=== PATIENT | male | born 2005 | race Caucasian/White ===

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

== ENCOUNTER 2025-08-24 19:08 | Emergency (ER) | payer OTHER, SELFPAY ==
--- OUTSIDE RECORDS SUMMARY | 2024-08-03 10:00 | XMS_ITS ---
Author Organization [facility] Address [address] [facility] [place] [address] Care Team Providers Care Network Services Project Manager Name Role Phone Antoinette Aceves Unavailable [phone] REASON FOR VISIT 3 month f/u Encounters Encounter Location Date Provider Diagnosis [facility] [address] [place] [address] 08/03/2024 Antoinette Aceves Plan Of Treatment No Information Progress Notes * CARLY SUEDOB:[birth year] (20 yo M)Acc No.[id number]:08/03/2024 Behavioral [facility] Patient: CARLY BENITEZ :?Antoinette AcevesDOB:2005???Age:19 Y???Sex:Male Date:08/03/2024hone:[phone]:[address] [place] [address], [address], [place], [id number] Subjective: * Chief Complaints: * 3 month f/u * Electronic signature of MARGIE Santoro on 08/24/2025 at 08:09 PM ESTSign off status: Pending * Provider: Nolan Aceves Date: 10/03/2023 Generated for Printing/Faxing/eTransmitting on:?08/24/2025 08:09 PM EST
--- OUTSIDE RECORDS SUMMARY | 2025-08-15 21:16 | XMS_ITS | Continuity of Care Document ---
Author Organization [facility] Address Unknown Care Team Providers Care Flour Mixer Helper Name Role Phone Priyanka Pam Garcia Primary Care Physician Encounter [facility] [id number] Date(s): 08/15/25 - 08/15/25 [facility] [address] [place], [place] [address] Encounter Diagnosis Back pain(Discharge Diagnosis) - 08/15/25 Contact dermatitis(Discharge Diagnosis) - 08/15/25 Discharge Disposition: Home (Routine DC) Attending Physician: Zenia Patterson D.O. Encounter Type: Emergency Allergies, Adverse Reactions, Alerts No Known Medication Allergies Treatment Plan Extracted from:Title:ED NoteAuthor:Zenia Patterson D.O. MDate:08/15/25 1. Contact dermatitis (L25.9: Unspecified contact dermatitis, unspecified cause) Ordered: cyclobenzaprine, 5 mg = 1 tab(s), Oral, TID, X 7 day(s), # 21 tab(s), Refills(s) 0, Pharmacy: [facility], 185, cm, 08/15/25 20:44:00 EST, Height/Length Dosing, 99.3, kg, 08/15/25 20:44:00 EST, Weight Dosing predniSONE, 0 = 1 -, Oral, As Directed, Take 4 tabs by mouth daily x3 days, 3 tabs daily x3 days, 2tabs daily x3 days, then 1 tab daily x3 days., # 30 tab(s), Refills(s) 0, Pharmacy: [facility] 1985, 185, cm, 08/15/25 20:44:00 EST, Height/Length Dosing, 99... ?? 2.??Back pain??(M54.9: Dorsalgia, unspecified) Ordered: cyclobenzaprine, 5 mg = 1 tab(s), Oral, TID, X 7 day(s), # 21 tab(s), Refills(s) 0, Pharmacy: [facility], 185, cm, 08/15/25 20:44:00 EST, Height/Length Dosing, 99.3, kg, 08/15/25 20:44:00 EST, Weight Dosing predniSONE, 0 = 1 -, Oral, As Directed, Take 4 tabs by mouth daily x3 days, 3 tabs daily x3 days, 2tabs daily x3 days, then 1 tab daily x3 days., # 30 tab(s), Refills(s) 0, Pharmacy: [facility], 185, cm, 08/15/25 20:44:00 EST, Height/Length Dosing, 99... ?? Orders: diphenhydrAMINE, 25 mg = 1 cap(s), Cap, Oral, Once, Stop date 08/15/25 20:59:00 EST, STAT, Start date 08/15/25 20:59:00 EST, 08/15/25 20:59:00 EST predniSONE, 40 mg = 2 tab(s), Tab, Oral, Once, Stop date 08/15/25 20:57:00 EST, STAT, Start date 08/15/25 20:57:00 EST, 08/15/25 20:57:00 EST Immunizations Given and Recorded VaccineDateStatusRefusal Reasondiphtheria/pertussis, acel/tetanus adult09/03/23 Givendiphtheria/pertussis, acel/tetanus adult01/11/18Recordedmeningococcal conjugate vaccine03/31/22Recordedmeningococcal conjugate vaccine01/11/18Recorded measles/mumps/rubella/varicella vaccine06/19/10Recordedhepatitis A pediatric vaccine06/19/10Recordedhepatitis A pediatric vaccine3/4/10Recordedvaricella virus vaccine11/28/09Recordedmeasles/mumps/rubella virus vaccine11/28/09RecordedDTaP, unspecified formulation11/28/09RecordedDTaP, unspecified formulation05/13/05 RecordedDTaP, unspecified formulation03/09/05RecordedDTaP, unspecified formulation04Recordedpoliovirus vaccine, inactivated05/13/05Recorded poliovirus vaccine, inactivated03/09/05Recordedhepatitis B pediatric vaccine 04RecordedHib, unspecified formulation04Recorded Medications Albuterol (Eqv-ProAir HFA) 90 mcg/inh inhalation aerosol 2 puff(s), Inhalation, q6hr Wheezing, 8.5 gm, Refill(s) 0, [facility], 185, cm, 12/01/2514:49:00 EST, Height/Length Dosing, 105, kg, 12/01/24 15:49:00 EST, Weight Dosing Start Date: 12/01/24 Status: Ordered Medication Dispense Status: Completed Quantity: 8.5 Unit: g Total Allowed Fills: 1 Fills Dispensed: 0 cyclobenzaprine 5 mg Tab 5 mg = 1 tab(s), Oral, TID, X 7 day(s), # 21 tab(s), Refills(s) 0, Pharmacy: [facility] 1985,185, cm, 08/15/25 20:44:00 EST, Height/Length Dosing, 99.3, kg, 08/15/25 20:44:00 EST, Weight Dosing Start Date: 08/15/25 Stop Date: 08/22/25 Status: Ordered Medication Dispense Status: Completed Quantity: 21.0 Unit: tab(s) Total Allowed Fills: 1 Fills Dispensed: 0 Indications: Unspecified contact dermatitis, unspecified cause; Dorsalgia, unspecified; predniSONE 10 mg Tab 0 = 1 -, Oral, As Directed, Take 4 tabs by mouth daily x3 days, 3 tabs daily x3 days, 2 tabs daily x3 days, then 1 tab daily x3 days., # 30 tab(s), Refills(s) 0, Pharmacy: [facility], 185,cm, 08/15/25 20:44:00 EST, Height/Length Dosing, 99.3, kg, 08/15/25 20:44:00 EST, Weight Dosing Start Date: 08/15/25 Status: Ordered Medication Dispense Status: Completed Quantity: 30.0 Unit: tab(s) Total Allowed Fills: 1 Fills Dispensed: 0 Indications: Unspecified contact dermatitis, unspecified cause; Dorsalgia, unspecified; Ventolin HFA 90 mcg/inh Aerosol-Adpt 1 puff(s), Inhalation, q6hr for wheezing, 18 gram, Refill(s) 0, [facility], 185, cm, 02/20/24 20:53:00 EDT, Height/Length Dosing, 102.1, kg, 02/20/24 20:53:00 EDT, Weight Dosing Start Date: 02/20/24 Status: Ordered Medication Dispense Status: Completed Quantity: 18.0 Unit: g Total Allowed Fills: 1 Fills Dispensed: 0 Problem List ConditionConfirmationCourseEffective DatesStatusHealth StatusInformantAnxiety ConfirmedActiveAsthmaConfirmedActiveExcessive thirstConfirmedResolvedFatigue ConfirmedResolvedTourette disorderConfirmedResolvedH/O retinal detachment ConfirmedActiveFrequent urinationConfirmedResolvedInjury of right handConfirmed ActiveBipolar I disorder with anxious distressConfirmedResolvedBMI 28.0-28.9,adultConfirmedActiveBMI 27.0-27.9,jneimJijuomohwVycqzjRomael8Qbhbbhwcl ActiveLeft wrist sprainConfirmedActive 1Added secondary to documentation in Social History. Procedures ProcedureDateRelated DiagnosisBody SiteStatusdetatched [id number] 1Surgical repair Social History Social History TypeResponseSmoking StatusNever (less than 100 in lifetime)1 entered on: 12/04/24Birth SexMaleSex RepresentationMale (finding) 1denies 2When he visits his mother, or his grandmother in [place] they both smoke Hospital Discharge Instructions Patient Education 08/15/2025 21:00:51 Contact Dermatitis Contact Dermatitis Dermatitis is redness, soreness, and swelling (inflammation) of the skin. Contact dermatitis is a reaction to certain substances that touch the skin. There are two types of this condition: ??? Irritant contact dermatitis. This is the most common type. It happens when something irritates your skin, such as when your hands get dry from washing them too often with soap. You can get this type of reaction even if you have not been exposed to the irritant before. ??? Allergic contact dermatitis. This type is caused by a substance that you are allergic to, such as poison jeniffer. It occurs when you have been exposed to the substance (allergen) and form a sensitivity to it. In some cases, the reaction may start soon after your first exposure to the allergen. In other cases, it may not start until you are exposed to the allergen again. It may then occur every time you are exposed to the allergen in the future. What are the causes? Irritant contact dermatitis is often caused by exposure to: ??? Makeup. ??? Soaps, detergents, and bleaches. ??? Acids. ??? Metal salts, such as nickel. Allergic contact dermatitis is often caused by exposure to: ??? Poisonous plants. ??? Chemicals. ??? Jewelry. ??? Latex. ??? Medicines. ??? Preservatives in products, such as clothes. What increases the risk? You are more likely to get this condition if you have: ??? A job that exposes you to irritants or allergens. ??? Certain medical conditions. These include asthma and eczema. What are the signs or symptoms? Symptoms of this condition may occur in any place on your body that has been touched by the irritant. ??? Symptoms include: ??? Dryness, flaking, or cracking. ??? Redness. ??? Itching. ??? Pain or a burning feeling. ??? Blisters. ??? Drainage of small amounts of blood or clear fluid from skin cracks. With allergic contact dermatitis, there may also be swelling in areas such as the eyelids, mouth, or genitals. How is this diagnosed? This condition is diagnosed with a medical history and physical exam. ??? A patch skin test may be done to help figure out the cause. ??? If the condition is related to your job, you may need to see an expert in health problems in the workplace (specialist physician). How is this treated? This condition is treated by staying away from the cause of the reaction and protecting your skin from further contact. Treatment may also include: ??? Steroid creams or ointments. Steroid medicines may need be taken by mouth (orally) in more severe cases. ??? Antibiotics or medicines applied to the skin to kill bacteria (antibacterial ointments). These may be needed if a skin infection is present. ??? Antihistamines. These may be taken orally or put on as a lotion to ease itching. ??? A bandage (dressing). Follow these instructions at home: Skin care ??? Moisturize your skin as needed. ??? Put cool, wet cloths (cool compresses) on the affected areas. ??? Try applying baking soda paste to your skin. Stir water into baking soda until it has the consistency of a paste. ??? Do not scratch your skin. Avoid friction to the affected area. ??? Avoid the use of soaps, perfumes, and dyes. ??? Check the affected areas every day for signs of infection. Check for: ??? More redness, swelling, or pain. ??? More fluid or blood. ??? Warmth. ??? Pus or a bad smell. Medicines ??? Take or apply ttpr-lsv-ocvwbuy and prescription medicines only as told by your health care provider. ??? If you were prescribed antibiotics, take or apply them as told by your health care provider. Donot stop using the antibiotic even if you start to feel better. Bathing ??? Try taking a bath with: ??? Epsom salts. Follow the instructions on the packaging. You can get these at your local pharmacyor grocery store. ??? Baking soda. Pour a small amount into the bath as told by your health care provider. ??? Colloidal oatmeal. Follow the instructions on the packaging. You can get this at your local pharmacy or grocery store. ??? Bathe less often. This may mean bathing every other day. ??? Bathe in lukewarm water. Avoid using hot water. Bandage care ??? If you were given a dressing, change it as told by your health care provider. ??? Wash your hands with soap and water for at least 20 seconds before and after you change your dressing. If soap and water are not available, use hand construction technology instructor. General instructions ??? Avoid the substance that caused your reaction. If you do not know what caused it, keep a journal to try to track what caused it. Write down: ??? What you eat and drink. ??? What cosmetics you use. ??? What you wear in the affected area. This includes jewelry. Contact a health care provider if: ??? Your condition does not get better with treatment. ??? Your condition gets worse. ??? You have any signs of infection. ??? You have a fever. ??? You have new symptoms. ??? Your bone or joint under the affected area becomes painful after the skin has healed. Get help right away if: ??? You notice red streaks coming from the affected area. ??? The affected area turns darker. ??? You have trouble breathing. This information is not intended to replace advice given to you by your health care provider. Make sure you discuss any questions you have with your health care provider. Document Revised: 03/19/2023 Document Reviewed: 03/19/2023 [employer] Patient Education ?? 2023 [employer]. 08/15/2025 21:00:51 Acute Back Pain, Adult Acute Back Pain, Adult Acute back pain is sudden and usually short-lived. It is often caused by an injury to the muscles and tissues in the back. The injury may result from: ??? A muscle, tendon, or ligament getting overstretched or torn. Ligaments are tissues that connectbones to each other. Lifting something improperly can cause a back strain. ??? Wear and tear (degeneration) of the spinal disks. Spinal disks are circular tissue that providecushioning between the bones of the spine (vertebrae). ??? Twisting motions, such as while playing sports or doing yard work. ??? A hit to the back. ??? Arthritis. You may have a physical exam, lab tests, and imaging tests to find the cause of your pain. Acute back pain usually goes away with rest and home care. Follow these instructions at home: Managing pain, stiffness, and swelling ??? Take sahz-fdp-jkfmppb and prescription medicines only as told by your health care provider. Treatment may include medicines for pain and inflammation that are taken by mouth or applied to the skin, or muscle relaxants. ??? Your health care provider may recommend applying ice during the first 24???48 hours after your pain starts. To do this: ??? Put ice in a plastic bag. ??? Place a towel between your skin and the bag. ??? Leave the ice on for 20 minutes, 2???3 times a day. ??? Remove the ice if your skin turns bright red. This is very important. If you cannot feel pain, heat, or cold, you have a greater risk of damage to the area. ??? If directed, apply heat to the affected area as often as told by your health care provider. Usethe heat source that your health care provider recommends, such as a moist heat pack or a heating pad. ??? Place a towel between your skin and the heat source. ??? Leave the heat on for 20???30 minutes. ??? Remove the heat if your skin turns bright red. This is especially important if you are unable to feel pain, heat, or cold. You have a greater risk of getting burned. Activity ??? Do not stay in bed. Staying in bed for more than 1???2 days can delay your recovery. ??? Sit up and stand up straight. Avoid leaning forward when you sit or hunching over when you stand. ??? If you work at a desk, sit close to it so you do not need to lean over. Keep your chin tucked in. Keep your neck drawn back, and keep your elbows bent at a 90-degree angle (right angle). ??? Sit high and close to the steering wheel when you drive. Add lower back (lumbar) support to your car seat, if needed. ??? Take short walks on even surfaces as soon as you are able. Try to increase the length of time you walk each day. ??? Do not sit, drive, or health information clerk one place for more than 30 minutes at a time. Sitting or standing for long periods of time can put stress on your back. ??? Do not drive or use heavy machinery while taking prescription pain medicine. ??? Use proper lifting techniques. When you bend and lift, use positions that put less stress on your back: ??? Bend your knees. ??? Keep the load close to your body. ??? Avoid twisting. ??? Exercise regularly as told by your health care provider. Exercising helps your back heal fasterand helps prevent back injuries by keeping muscles strong and flexible. ??? Work with a physical therapist to make a safe exercise program, as recommended by your health care provider. Do any exercises as told by your physical therapist. Lifestyle ??? Maintain a healthy weight. Extra weight puts stress on your back and makes it difficult to havegood posture. ??? Avoid activities or situations that make you feel anxious or stressed. Stress and anxiety increase muscle tension and can make back pain worse. Learn ways to manage anxiety and stress, such as through exercise. General instructions ??? Sleep on a firm mattress in a comfortable position. Try lying on your side with your knees slightly bent. If you lie on your back, put a pillow under your knees. ??? Keep your head and neck in a straight line with your spine (neutral position) when using electronic equipment like smartphones or pads. To do this: ??? Raise your smartphone or pad to look at it instead of bending your head or neck to look down. ??? Put the smartphone or pad at the level of your face while looking at the screen. ??? Follow your treatment plan as told by your health care provider. This may include: ??? Cognitive or behavioral therapy. ??? Acupuncture or massage therapy. ??? Meditation or yoga. Contact a health care provider if: ??? You have pain that is not relieved with rest or medicine. ??? You have increasing pain going down into your legs or buttocks. ??? Your pain does not improve after 2 weeks. ??? You have pain at night. ??? You lose weight without trying. ??? You have a fever or chills. ??? You develop nausea or vomiting. ??? You develop abdominal pain. Get help right away if: ??? You develop new bowel or bladder control problems. ??? You have unusual weakness or numbness in your arms or legs. ??? You feel faint. These symptoms may represent a serious problem that is an emergency. Do not wait to see if the symptoms will go away. Get medical help right away. Call your local emergency services (911 in the [place] Do not drive yourself to the hospital. Summary ??? Acute back pain is sudden and usually short-lived. ??? Use proper lifting techniques. When you bend and lift, use positions that put less stress on your back. ??? Take agxi-phn-qnkthjb and prescription medicines only as told by your health care provider, andapply heat or ice as told. This information is not intended to replace advice given to you by your health care provider. Make sure you discuss any questions you have with your health care provider. Document Revised: 12/05/2021 Document Reviewed: 12/05/2021 [employer] Patient Education ?? 2023 [employer]. Follow Up Care 08/15/2025 20:38:20 With:Priyanka ROA, Pam Garcia, DARIUSZ, MED Address: [address] [place], [place] [id number]- When:08/18/2025 Physician Emergency department Note * Zenia Patterson D.O.: PERFORM Event Display: ED Note-Physician Authored Date: Basic Information Time Seen: Shabbir Mabry D.O., Zenia Bonds ??08/15/2025 20:46 Chief Complaint pt arrives for c/o rash on his back after having biofreeze put on it. History of Present Illness The patient is a 20-year-old healthy male who presents to the emergency department??for an allergicreaction to Biofreeze. ??He has been having back pain for about a month in the lumbar??region. ??This evening he had his girlfriend rub Biofreeze on it. ??He states he is used in the past. ??But thistime he has never had this type of reaction. ??He states that he put the Biofreeze on and??it was very cold and then it got hot. ??It got very hot. ??He tried to rinse it off and he stated that it was ineffective.?? Therefore he is coming to the emergency department for evaluation after his back was red. ?? In reference to the back pain, he denies any IV drug use. ??No trauma to the back. ??No active infections anywhere.?? He does not have diabetes. ??No immunocompromising states.?? Patient??denies any loss of bowel or bladder. ??No urinary retention.?? No numbness or weakness in the lower extremities.?? The pain has been present for about 1 month.?? In the upper lumbar area. ??Moving makes it worse. ??Nothing makes it better. ??No radiation of the pain. Review of Systems 10 systems were reviewed. ??Unless indicated in a detailed history of present illness, all other systems reviewed, unremarkable, or noncontributory. Physical Exam Vitals & Measurements T:??36.8?C(Oral)?? HR:??75(Peripheral)?? RR:??16?? BP:??135/71?? SpO2:??98%?? HT:??185??cm?? WT:??99.3??kg?? BMI:??29.01?? Introduced myself to the patient. ??My hands were washed with??hospital supplied??hand construction technology instructor and then??nonlatex gloves were applied. ??I??obtained??permission from the patient to??examine them. ?? General:??Patient is alert and oriented??to person place and time.?? They are able to provide theirown??history.?? Patient appears??to be nontoxic although in mild distress. Skin:??Skin is pink warm and dry without any evidence of rashes or lesions. Head:??Normocephalic atraumatic. ?? Eye:??Pupils are equal round and reactive. ??Extraocular muscles are intact. ??No evidence of vertical or horizontal nystagmus.?? Conjunctiva??is normal. ??No evidence of scleral icterus ENMT: Dentition is intact, mucous membranes are moist.?? No evidence of nasal discharge. ?? Back:??No midline point tenderness.?? No paraspinal musculature tenderness.?Diffusely tender in the??upper lumbar segments of the back. ??More centrally located. Extremities:??Patient moves all 4 extremities symmetrically.?? No evidence of gross deformity, swelling, or tenderness. Neurological: oriented x 4, LOC appropriate for age, CN II-XII intact, motor strength equal & normal bilaterally, sensation equal & normal bilaterally, speech normal 2 out of 4 patellar reflexes bilaterally, 5 out of 5??symmetrical muscle strength in dorsiflexion, plantarflexion, extensor hallucis longus, hip flexors, quadriceps, hamstrings.?? No??change in sensation to light touch or pressure. Psychiatric:??cooperative, affect??appropriate for age,??normal??judgement,??normal??psychiatric thoughts. ?? After the patient was examined by close removed and my hands were re- sanitized.?? The patient was informed of all abnormal physical exam findings. Medical Decision Making Medical Decision Making and Clinical Course Summary:?The patient is a 20-year-old healthy male who presents to the emergency department??kendall allergic reaction to Biofreeze. ??He has been having back pain for about a month in the lumbar??region. ??This evening he had his girlfriend rub Biofreeze on it. ??He states he is used in the past. ??But this time he has never had this type of reaction. ??He states that he put the Biofreeze on and??it was very cold and then it got hot. ??It got very hot. ??He tried to rinse it off and he stated that it was ineffective.?? Therefore he is coming to the emergency department for evaluation afterhis back was red. ?? In reference to the back pain, he denies any IV drug use. ??No trauma to the back. ??No active infections anywhere.?? He does not have diabetes. ??No immunocompromising states.?? Patient??denies any loss of bowel or bladder. ??No urinary retention.?? No numbness or weakness in the lower extremities.?? The pain has been present for about 1 month.?? In the upper lumbar area. ??Moving makes it worse. ??Nothing makes it better. ??No radiation of the pain. ?? Additional Historian:?? none ?? Medical Records Reviewed:?? none ?? Labs ordered:?? none ?? Imaging Ordered:?? none ?? Interpretation of Labs/Imaging:?? NA ?? Medications administered: Prednisone 40 mg PO Benadryl 25 mg PO ?? Reassessment:?? none ?? Disposition:?? discharge ?? Plan: Monitor allergy symptoms. ??No longer use the Biofreeze. Prednisone taper. ??The prednisone will help both with the allergic reaction as well as the back pain. Benadryl every 6 hours as needed itching Cyclobenzaprine for the back pain. Patient needs to follow-up with his primary medical physician for further evaluation and treatment.?? Return if any deficits??appear. ?? Prior to the patient being discharged, all??aspects of the visit were revisited.?? I am made certain that the patient's??complaint was understood.?? I went over all of the laboratories and images??that were performed and I even went through??why we did not do testing that the patient would have otherwise had an expected.?? Questions were answered to the patient??and/or family satisfaction.?? Closed-loop communication techniques were utilized.?? In terms of ultimate disposition of the patient,??it was a collaboration with the patient and/or family and myself.?? Appropriate discharge information was??conveyed.?? The expectation??is that the patient will follow-up??and that their emergency department visit??is not concluded??in the emergency department but rather wants a??follow-up with??their primary care provider or specialist as indicated during her ER visit.?? If the patient was admitted, then the patient's??expectation to be that they would follow-up with their??primary care physician and/or specialist upon discharge from the hospital per the recommendation of the hospitalist or trauma service. ?? This chart was created using??[employer] services.?? All efforts were??utilized to??identify and recognize errors, misspellings, and misinterpretations.? Assessment/Plan 1.??Contact dermatitis??(L25.9: Unspecified contact dermatitis, unspecified cause) Ordered: cyclobenzaprine, 5 mg = 1 tab(s), Oral, TID, X 7 day(s), # 21 tab(s), Refills(s) 0, Pharmacy: [facility], 185, cm, 08/15/25 20:44:00 EST, Height/Length Dosing, 99.3, kg, 08/15/25 20:44:00 EST, Weight Dosing predniSONE, 0 = 1 -, Oral, As Directed, Take 4 tabs by mouth daily x3 days, 3 tabs daily x3 days, 2tabs daily x3 days, then 1 tab daily x3 days., # 30 tab(s), Refills(s) 0, Pharmacy: [facility], 185, cm, 08/15/25 20:44:00 EST, Height/Length Dosing, 99... ?? 2.??Back pain??(M54.9: Dorsalgia, unspecified) Ordered: cyclobenzaprine, 5 mg = 1 tab(s), Oral, TID, X 7 day(s), # 21 tab(s), Refills(s) 0, Pharmacy: [facility], 185, cm, 08/15/25 20:44:00 EST, Height/Length Dosing, 99.3, kg, 08/15/25 20:44:00 EST, Weight Dosing predniSONE, 0 = 1 -, Oral, As Directed, Take 4 tabs by mouth daily x3 days, 3 tabs daily x3 days, 2tabs daily x3 days, then 1 tab daily x3 days., # 30 tab(s), Refills(s) 0, Pharmacy: [facility], 185, cm, 08/15/25 20:44:00 EST, Height/Length Dosing, 99... ?? Orders: diphenhydrAMINE, 25 mg = 1 cap(s), Cap, Oral, Once, Stop date 08/15/25 20:59:00 EST, STAT, Start date 08/15/25 20:59:00 EST, 08/15/25 20:59:00 EST predniSONE, 40 mg = 2 tab(s), Tab, Oral, Once, Stop date 08/15/25 20:57:00 EST, STAT, Start date 08/15/25 20:57:00 EST, 08/15/25 20:57:00 EST Disposition Plan Discharge Prescription List Prescriptions cyclobenzaprine 5 mg Tab, 5 mg= 1 tab(s), Oral, TID predniSONE 10 mg Tab, 1 -, Oral, As Directed Follow-up With When Contact Information Pam Simmons, DARIUSZ, MED In 3 days 08/18/[address] [place] [address] [place] [address]- Additional Instructions: Patient Education Contact Dermatitis Acute Back Pain, Adult Problem List/Past Medical History Ongoing Anxiety Asthma BMI 27.0-27.9,adult BMI 28.0-28.9,adult H/O retinal detachment Injury of right hand Left wrist sprain Smoker Historical Bipolar I disorder with anxious distress Excessive thirst Fatigue Frequent urination Tourette disorder Procedure/Surgical History detatched retina (2004). 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 Living situation: Home/Independent., 03/07/2019 Substance Abuse - Denies Substance Abuse, 03/07/2019 Never., 12/04/2024 Current, Marijuana, 02/20/2024 Tobacco - Denies Tobacco Use, 03/07/2019 Never (less than 100 in lifetime) Tobacco Use:., 12/04/2024 Never (less than 100 in lifetime) Tobacco Use:. Never Smokeless Tobacco Use:. Household tobacco concerns: No., 09/14/2023 Family History Bipolar 1 disorder: Mother, Father and Brother. Drug addiction: Mother and Father. Lab Results No qualifying data available. Diagnostic Results No qualifying data available. Electronically Signed By: Zenia Patterson D.O. Date and Time Signed: 08/15/25 21:07 EST Patient Care team information Care Team Personnel Name: Pam Simmons Position: [facility] Ambulatory - Primary Care - [facility] Member Role: Primary Care Physician Address: [address] [place] [address]- Telecom: Care Team Related Persons Name: TREY ARCHER Name: TREY ARCHER Name: TREY ARCHER Name: HANNAH ARCHER Name: HANNAH ARCHER Name: HANNAH ARCHER Name: HANNAH ARCHER Insurance Providers Guarantor name: [facility] Information #: 1 Payer: [facility] Payer Identifier: [id number] Member Number: [id number] Group Number: [id number] Subscriber Identifier: [id number] Relationship to Subscriber: self Coverage Type: MEDICAID Coverage Verification Date: 25 Telecom: [phone] Address: [facility] [address] [place] [address]
--- OUTSIDE RECORDS SUMMARY | 2025-08-18 19:29 | XMS_ITS | Continuity of Care Document ---
Author Organization [facility] Address Unknown Care Team Providers Care Cap Sewer Name Role Phone Pam Mathew Primary Care Physician [phone] Encounter _[facility] [id number] Date(s): 08/18/25 - 08/18/25 [facility] [address] [place] [address]- Encounter Diagnosis Encounter for medical screening examination(Discharge Diagnosis) - 08/18/25 Discharge Disposition: Home (Routine DC) Attending Physician: Raul Zayas DO Encounter Type: Emergency Allergies, Adverse Reactions, Alerts No Known Medication Allergies Treatment Plan Extracted from:Title:ED NoteAuthor:Raul Zayas DODate:08/18/25 Encounter for medical screen ing examination (Z13.9: Encounter for screening, unspecified) Immunizations Given and Recorded VaccineDateStatusRefusal Reasondiphtheria/pertussis, acel/tetanus adult09/03/23 Givendiphtheria/pertussis, acel/tetanus adult01/11/18Recordedmeningococcal conjugate vaccine03/31/22Recordedmeningococcal conjugate vaccine01/11/18Recorded measles/mumps/rubella/varicella vaccine06/19/10Recordedhepatitis A pediatric vaccine06/19/10Recordedhepatitis A pediatric vaccine11/28/09Recordedvaricella virus vaccine11/28/09Recordedmeasles/mumps/rubella virus vaccine11/28/09RecordedDTaP, unspecified formulation11/28/09RecordedDTaP, unspecified formulation05/13/05 RecordedDTaP, unspecified formulation03/09/05RecordedDTaP, unspecified formulation04Recordedpoliovirus vaccine, inactivated05/13/05Recorded poliovirus vaccine, inactivated03/09/05Recordedhepatitis B pediatric vaccine 04RecordedHib, unspecified formulation04Recorded Medications Albuterol (Eqv-ProAir HFA) 90 mcg/inh inhalation aerosol 2 puff(s), Inhalation, q6hr Wheezing, 8.5 gm, Refill(s) 0, [facility], 185, cm, 12/01/2514:49:00 EST, Height/Length Dosing, 105, kg, 12/01/24 15:49:00 EST, Weight Dosing Start Date: 12/01/24 Status: Ordered Medication Dispense Status: Completed Quantity: 8.5 Unit: g Total Allowed Fills: 1 Fills Dispensed: 0 cyclobenzaprine 5 mg Tab 5 mg = 1 tab(s), Oral, TID, X 7 day(s), # 21 tab(s), Refills(s) 0, Pharmacy: [facility] 1985,185, cm, 08/15/25 20:44:00 EST, [...] days., # 30 tab(s), Refills(s) 0, Pharmacy: [facility], 185,cm, 08/15/25 20:44:00 EST, Height/Length Dosing, 99.3, kg, 08/15/25 20:44:00 EST, Weight Dosing Start Date: 08/15/25 Status: Ordered Medication Dispense Status: Completed Quantity: 30.0 Unit: tab(s) Total Allowed Fills: 1 Fills Dispensed: 0 Indications: Unspecified contact dermatitis, unspecified cause; Dorsalgia, unspecified; Ventolin HFA 90 mcg/inh Aerosol-Adpt 1 puff(s), Inhalation, q6hr for wheezing, 18 gram, Refill(s) 0, [facility], 185, cm, 02/20/24 20:53:00 EDT, Height/Length Dosing, 102.1, kg, 02/20/24 20:53:00 EDT, Weight Dosing Start Date: 02/20/24 Status: Ordered Medication Dispense Status: Completed Quantity: 18.0 Unit: g Total Allowed Fills: 1 Fills Dispensed: 0 Problem List ConditionConfirmationCourseEffective DatesStatusHealth StatusInformantAnxiety ConfirmedActiveAsthmaConfirmedActiveExcessive thirstConfirmedResolvedFatigue ConfirmedResolvedTourette disorderConfirmedResolvedH/O retinal detachment ConfirmedActiveFrequent urinationConfirmedResolvedInjury of right handConfirmed ActiveBipolar I disorder with anxious distressConfirmedResolvedBMI 28.0-28.9,adultConfirmedActiveBMI 27.0-27.9,deyjdVpiiezmxnLwbfeqCepdbi1Vgjjnddfy ActiveLeft wrist sprainConfirmedActive 1Added secondary to documentation in Social History. Procedures ProcedureDateRelated DiagnosisBody SiteStatusdetatched [id number] 1Surgical repair Social History Social History TypeResponseSmoking StatusNever (less than 100 in lifetime)1 entered on: 12/04/24Birth SexMaleSex RepresentationMale (finding) 1denies 2When he visits his mother, or his grandmother in [place] they both smoke Hospital Discharge Instructions Patient Education 08/18/2025 19:25:39 Medical Screening Exam Medical Screening Exam A medical screening exam (MSE) helps to determine whether you need immediate medical treatment relating to any number of symptoms you are having. This type of exam may be done in an emergency department, an urgent care setting, or your health care provider's office. Depending on your symptoms and severity, you may need additional tests or medical therapy. It is important to note that an MSE does not necessarily mean that you will need or receive furthermedical testing or interventions if your symptoms are not deemed to be medically urgent (emergent). Tell a health care provider about: ??? Any allergies you have. ??? All medicines you are taking, including vitamins, herbs, eye drops, creams, and qwvh-xdb-ntcluvc medicines. ??? Any problems you or family members have had with anesthetic medicines. ??? Any bleeding problems you have. ??? Any surgeries you have had. ??? Any medical conditions you have. ??? Whether you are or may be . What happens during the test? During the exam, a health care provider does a short, often focused, physical exam and asks about your medical history to assess: ??? Your current symptoms. ??? Your overall health. ??? Your need for possible further medical intervention. What can I expect after the test? If you have a regular health care provider, make an appointment for a follow-up visit with him or her. If you do not have a regular health care provider, ask about resources in your community. Your medical screening exam may determine that: ??? You do not need emergency treatment at this time. ??? You need treatment right away. ??? You need to be transferred to another medical center. This may happen if you need an emergent specialist or hr consultant that is not available at the medical center you are at. ??? You need to have more tests. A director biomedical engineering may be consulted if needed. Get help right away if: ??? Your condition gets worse. ??? You develop new or troubling symptoms before you see your health care provider. These symptoms may represent a serious problem that is an emergency. Do not wait to see if the symptoms will go away. Get medical help right away. Call your local emergency services (911 in the [place] Do not drive yourself to the hospital. Summary ??? A medical screening exam helps to determine whether you need medical treatment right away. Thistype of exam may be done in an emergency department, an urgent care setting, or your health care provider's office. ??? During the exam, a health care provider does a short physical exam and asks about your current symptoms and overall health. ??? Depending on the exam, more tests or therapies may be ordered. However, an MSE does not necessarily mean that you will have further medical testing if your symptoms are not deemed to be urgent. ??? If you need further care that is not offered at your current medical center, you may need to betransferred to another facility. This information is not intended to replace advice given to you by your health care provider. Make sure you discuss any questions you have with your health care provider. Document Revised: 05/27/2022 Document Reviewed: 01/22/2022 [employer] Patient Education ?? 2023 [employer]. Follow Up Care 08/18/2025 19:20:11 With:Dental: [facility] [phone] Address:Unknown When:08/21/2025 19:25:00 With:[facility]: [facility] [phone] Address:Unknown When:08/21/2025 19:25:00 With:Dental: [facility] [phone] Address:Unknown When:08/21/2025 19:24:59 Comments:Call dentist tomorrow to have your crown replaced. Physician Emergency department Note * Raul Zayas DO: PERFORM Event Display: ED Note-Physician Authored Date: [id number] Basic Information Time Seen: Raul Zayas DO ??08/18/2025 19:21 Chief Complaint pt arrives for c/o his crown falling off History of Present Illness 20-year-old male to the emergency department chief complaint of dental crown falling off.?? Patientreports that he was eating a peppermint cookie??when he noticed that there was something hard in it. ??He spit it out and saw that it was a??steel dental crown.?? He reports that he was told that this needed to be replaced??however he has not done so.?? He has no pain. ??He does not know what to doat this point as the crown has become displaced. Review of Systems Pertinent positive and negatives as above in HPI. Physical Exam Vitals & Measurements T:??36.5?C(Oral)?? HR:??76(Peripheral)?? RR:??17?? BP:??169/85?? SpO2:??98%?? HT:??185??cm?? WT:??99??kg?? BMI:??28.93?? VITALS: I have reviewed the triage vital signs.?? GENERAL: Well developed, well appearing adult in no acute distress. ?? NEURO: Alert and oriented. Moves all extremities. Face is symmetric and expressive.?? EYES: PERRL. No scleral icterus or conjunctival injection. No discharge.?? HENT: Normocephalic, atraumatic. Hearing is grossly intact. Nares grossly patent and without discharge. Mucous membranes moist.?Tooth with displaced crown, no surrounding erythema, no evidence of dental??abscess or infection. NECK: No JVD. Patient moves neck without restriction.?? EXTREMITIES: Symmetric muscle bulk. No joint swelling. No clubbing, cyanosis, or deformity.?? SKIN: Warm and dry. Normal turgor. No rash or lesions appreciated.?? PSYCH: Mood, affect, and interaction is appropriate to the setting. Medical Decision Making Patient has displacement of dental crown. ??No acute issue. ??Discussed with him that this is not aproblem that could be solved in the emergency department he needs to follow-up with dentistry.?Dental list given.?? Patient was discharged home. Assessment/Plan Encounter for medical screening examination??(Z13.9: Encounter for screening, unspecified) Disposition Plan Patient Discharge Condition Stable Discharge Disposition Home Discharge Prescription List Prescriptions No active prescription medications Follow-up With When Contact Information Dental: [facility] [phone] In 3 days 08/21/2025 EST Additional Instructions: Dental: [facility] [phone] In 3 days 08/21/2025 EST Additional Instructions: Dental: [facility] [phone] In 3 days 08/21/2025 EST Additional Instructions: Call dentist tomorrow to have your crown replaced. Patient Education Medical Screening Exam Problem List/Past Medical History Ongoing Anxiety Asthma BMI 27.0-27.9,adult BMI 28.0-28.9,adult H/O retinal detachment Injury of right hand Left wrist sprain Smoker Historical Bipolar I disorder with anxious distress Excessive thirst Fatigue Frequent urination Tourette disorder Procedure/Surgical History detatched retina (2004). 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 Electronically Signed By: Raul Zayas DO Date and Time Signed: 08/18/25 19:43 EST Patient Care team information Care Team Personnel Name: Pam Simmons Position: FT Ambulatory - Primary Care - C[facility] Member Role: Primary Care Physician Address: [address] [place] [address]- Telecom: Care Team Related Persons Name: TREY ARCHER Name: TREY ARCHER Name: TREY ARCHER Name: HANNAH ARCHER Name: HANNAH ARCHER Name: HANNAH ARCHER Name: HANNAH ARCHER Insurance Providers Guarantor name: CARLY Felder VIKRAM Health Plan Information #: 1 Payer: [facility] Payer Identifier: [id number] Member Number: [id number] Group Number: [facility] Subscriber Identifier: [id number] Relationship to Subscriber: self Coverage Type: MEDICAID Coverage Verification Date: 25 Telecom: [phone] Address: [facility] [address] [place] [address]
[2025-08-24] VITALS (14 sets, daily range): BP systolic 150; BP diastolic 70–80; PULSE 69–115; TEMP 36.5; O2SAT 20–98; BMI 28.9
--- NOTE | 2025-08-24 19:42 | ECG_ITS ---
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 Measurements Intervals [place] Rate: 79 P: 68 AL: 120 QRS: 109 QRSD: 88 T: 31 QT: 330 QTc: 365 Interpretive Statements 1100 Sinus rhythm 1102 Sinus arrhythmia 7100 Abnormal right axis deviation 9130 borderline ECG Compared to ECG 07/24/2022 14:22:24 Right-axis deviation now present Electronically Signed On 08-25-2025 6:54:50 EST by MAXIMO ANTON M.D.
--- NOTE | 2025-08-24 19:54 | CT_ITS ---
The [place] [id number] Patient Name: CARLY SUE MRN: [id number] date: 2005 Sex: M Assigned Patient Location: ED.MAIN Current Patient Location: ED.MAIN Accession/Order Number: [id number] Exam Date: 08/24/2025 20:30 Report Date: 08/24/2025 21:28 At the request of: JAMAR RIBEIRO Procedure: CT head/brain wo con CT BRAIN WITHOUT CONTRAST: CLINICAL HISTORY: MAHAN, Dizziness, R Eye pressure COMPARISON: None TECHNIQUE: Contiguous axial unenhanced images were obtained through the brain. This CT exam was performed using one or more following dose reduction techniques: Automated exposure control, adjustment of the mA and/or kV according to patient size, or use of iterative reconstruction technique. FINDINGS: There is no evidence of midline shift, intra or extra-axial fluid collection, hemorrhage or CT evidence of of acute large vascular distribution stroke Visualized intraorbital contents appear unremarkable. Visualized paranasal sinuses are clear. The surrounding soft tissues are normal. CT/CT head/brain wo con IMPRESSION: NO ACUTE INTRACRANIAL ABNORMALITY. Impression dictated by: Juni Eric M.D. 08/24/2025 9:28 PM Dictation Location: [place] [address] Electronically authenticated by: [id number] Y Date: 08/24/2025 21:28
--- OUTSIDE RECORDS SUMMARY | 2025-08-24 20:10 | XMS_ITS | Patient Health Record ---
Author Organization [facility] Address [address] [place] [address] Care Team Providers Care Agricultural Sciences Professor Name Role Phone Michael Luevano Unavailable [phone] Allergies No Known Allergies Reason For Referral No Information Medications Medication SIG (Take, Route, Frequency, Duration) Notes Start Date End Date Status Vraylar 1.5 MG Capsule 1 capsule Orally Once a d ay; Duration: 30 day(s) 07/23/2022Not-Taking/PRNZyPREXA 2.5 MG Tablet1 tablet Orally Once a day; Duration: 30 daysActiveGeodon 20 MG Capsule1 capsule with food Orally daily; Duration: 30 day(s)Not-Taking/PRNSEROquel XR 50 MG Tablet Extended Release 24 Hour1 tablet in the evening Orally Once a day; Duration: 14 day(s)to wean off Not-Taking/PRNrisperiDONE 1 mg TabletTAKE ONE TABLET BY MOUTH ONCE DAILY FOR 30 DAYS; Duration: 30Not-Taking/PRNAbilify 10 MG Tablet1 tablet Orally Once a day; Duration: 30 day(s)Not-Taking/PRNSaphris 10 MG Tablet Sublingual2 tablets under the tongue and allow to dissolve Sublingual once a dayNot-Taking/PRN Social History Tobacco Use: Social History Observation Description Date Details (start date - stop date) Never Smoker NA - NA Social History GeneralSocial InfoQuestionAnswerNotesDepression Screening (PHQ-9):Little interest or pleasure in doing thingsSeveral daysFeeling down, depressed, or hopelessSeveral daysTrouble falling or staying asleep, or sleeping too much Several daysFeeling tired or having little energyNot at allPoor appetite or overeatingNot at allFeeling bad about yourself-or that you are a failure or have let yourself or your family downNot at allTrouble concentrating on things, such as reading the newspaper or watching televisionNot at allMoving or speaking so slowly that other people could have noticed. Or the opposite being so fidgetyor restless that you have been moving around a lot more than usualNot at all Thoughts that you would be better off , or of hurting yourself in some way Not at allTotal Lugsz7OemqoykivnfktXgvsxcz DepressionTobacco Screen:Are you a: never smokerAlcohol Screening:Did you have a drink containing alcohol in the past year?ZjKwsobq5XfkvxymiodvtlvYmwwvderViocdsm Notes: parent denies smoke exposure parent denies smoke exposure parent denies smoke exposure parent denies smoke exposure parent denies smoke exposure parent denies smoke exposure parent denies smoke exposure parent denies smoke exposure parent denies smoke exposure parent denies smoke exposure parent denies smoke exposure parent denies smoke exposure parent denies smoke exposure parent denies smoke exposure PARENTS AND GRANDPARENTS SMO KE IN HOME PARENTS AND GRANDPARENTS SMO KE IN HOME parent denies smoke exposure parent denies smoke exposure parent denies smoke exposure parent denies smoke exposure parent denies smoke exposure parent denies smoke exposure parent denies smoke exposure parent denies smoke exposure parent denies smoke exposure parent denies smoke exposure parent denies smoke exposure parent denies smoke exposure parent denies smoke exposure parent denies smoke exposure parent denies smoke exposure parent denies smoke exposure parent denies smoke exposure Problems Problem Type SNOMED Code ICD Code Onset Dates Problem Status W/U Status Risk Notes Problem Obesity (204297475) Obesity (BMI 30-39.9) (E66.9) ActiveconfirmedProblemADHD - Attention deficit disorder with hyperactivity (493572474)Attention deficit disorder with hyperactivity (F90.9)Activeconfirmed ProblemDisorder of speech and language development (469491868)Other developmental speech or language disorder (F80.89)ActiveconfirmedProblem Childhood emotional disorder (769679330)Emotional disturbance of childhood or adolescence (F93.9)Activeconfirmed Vital Signs Heart Rate 72 /min 09/05/2024 Rnunjvebvgf02.6 degrees Ohsehiopzd83/10/1827Ldogrpbm36 %09/05/2024lood pressure ejdxmefbn75 mm Hg09/05/20246114Mogzoj06.5 in09/05/2024lood pressure gnjopkyt722 mm Hg09/05/20247748Dskbrj368.8 lbs111/06/2023BMI31.05 kg/m209/05/2024 Encounters Encounter Location Date Provider Diagnosis [place] [address] [place] [address] 09/05/2024 Michael Luevano Emotional disturb ance of childhood or adolescence F93.9 Assessments Encounter Date Diagnosis (ICD Code) Assessment Notes Treatment Notes Treatment Clinical Notes Section Notes 09/05/2024 Emotional disturbance of childho od or adolescence (ICD-10 - F93.9) Patient will discontinue current treatment plan of olanzapine 2.5 mg. Patient was encouraged to setan appointment in the future should he ever feel the need for restarting medications for mental health issues. Plan Of Treatment No Information Medical (General) History Medical History History ICD Code BIPOLAR 15 WEEKS PREMATURE (TWIN SISTER PASSED), ON O2 FOR 1 YEAR AFTER BIRTHRETINAL DETACHMENTSurgical History Surgery Date(Month/Year) BILAT INGUINAL HERNIA REPAIR BEFORE AGE 1 Hospitalization History Reason Date(Month/Year) PNEUMONIA, MULTIPLE OCCASIONS AGE 1-4
--- OUTSIDE RECORDS SUMMARY | 2025-08-24 20:10 | XMS_ITS | Clinical Summary ---
Author Organization [facility] Address [address], [address] [place] [address] Care Team Providers Care Tailings Man Name Role Phone Unavailable Primary Care Provider Unavailabl e Allergies No known active allergies Medications MedicationSigDispense QuantityRefillsLast FilledStart DateEnd DateStatus ABILIFY 5 MG tablet 02/09/2014ctive Active Problems No known active problems Family History Medical HistoryRelationNameCommentsArthritisMaternal GrandmotherRelationName StatusCommentsBrotherAliveFatherAliveMaternal GrandmotherMotherDeceasedDrug overdose Social History Tobacco UseTypesPacks/DayYears UsedDateSmoking Tobacco: Never Tobacco Cessation:Counseling Given: Yes Alcohol UseStandard Drinks/WeekCommentsNot Asked0 (1 standard drink = 0.6 oz pure alcohol)Sex and Gender InformationValueDate RecordedSex Assigned at Not on fileLegal VtqQnqz0511/06/2012 9:20 AM ESTGender IdentityNot on fileSexual OrientationNot on file Last Filed Vital Signs Vital SignReadingTime TakenCommentsBlood Beexrsfr798/8403/08/2014 1:53 PM EDT Iptcm4789/12/2014 1:53 PM NMZFowhmcveeps19.2 ??C (97.1 ??F)03/08/2014 1:53 PM EDTRespiratory Qgnb917303/08/2014 1:53 PM EDTOxygen Saturation--Inhaled Oxygen Concentration--Vxmbfl30.7 kg (92 lb)03/08/2014 1:53 PM EHVHhuovz782.8 cm (4' 6.25 )03/08/2014 1:53 PM EDTBody Mass Index21.98003/08/2014 1:53 PM EDT Plan of Treatment Not on file Advance Directives TypeDate RecordedPatient RepresentativeExplanationACP-Power of Attorney03/08/2014 1:[address] Custody Document
--- OUTSIDE RECORDS SUMMARY | 2025-08-24 20:10 | XMS_ITS | Clinical Summary ---
Author Organization [facility] [place] [address] Care Team Providers Care Ride Attendant Name Role Phone Sandi Souza MD Primary Care Provider [phone] Social History Tobacco UseTypesPacks/DayYears UsedDateSmoking Tobacco: Never AssessedSex and Gender InformationValueDate RecordedSex Assigned at BirthNot on fileLegal Sex Male02/05/2021 9:20 AM EDTGender IdentityNot on fileSexual OrientationNot on file Plan of Treatment Health MaintenanceDue DateLast DoneCommentsMMR (1 of 1 - Standard series) 2005Tetanus Diphtheria and Pertussis Vaccines (1 - Tdap)2011 Varicella (1 of 2 - 13+ 2-dose series)2017HPV (1 - Male 3-dose series) 2019Vision Grcoamrim69/22/2019MenB (1 of 2 - MenB 2-Dose Series Bexsero) 2020Hearing Jykmxhdec52/22/2022Hepatitis B (1 of 3 - 19+ 3-dose series) 3COVID-19 ( season)2025FLU (#1)05/28/2025HIBAged OutNo longer eligible based on patient's age to complete this topicHepatitis AAged Out No longer eligible based on patient's age to complete this topicMenACWYAged Out No longer eligible based on patient's age to complete this topicNirsevimabAged OutNo longer eligible based on patient's age to complete this topicPneumococcal Aged OutNo longer eligible based on patient's age to complete this topicPolio Aged OutNo longer eligible based on patient's age to complete this topic RotavirusAged OutNo longer eligible based on patient's age to complete this topic Insurance Care Teams Team MemberRelationshipSpecialtyStart DateEnd Sandi Souza MD [address] [place] [address] PCP - Generalmily Medicine02/04/21
--- OUTSIDE RECORDS SUMMARY | 2025-08-24 20:10 | XMS_ITS | Clinical Summary ---
Author Organization [facility] Address [address] [place] [address] Care Team Providers Care Home Energy Inspector Name Role Phone Unavailable Primary Care Provider Unavailabl e Social History Tobacco UseTypesPacks/DayYears UsedDateSmoking Tobacco: Never AssessedSex and Gender InformationValueDate RecordedSex Assigned at BirthNot on fileLegal Sex Male12/09/2022 6:45 PM EDTGender IdentityNot on fileSexual OrientationNot on file Plan of Treatment Not on file Insurance
[2025-08-24 20:31] LABS: Hematocrit 49.7 % (42.0-54.0); Hemoglobin 18.0 g/dL (14.0-18.0); Immature Granulocytes Abs Auto 0.07 10^3/uL (0.00-0.03); Immature Granulocytes Pct Auto 0.8 % (0.0-0.5); Lymphocytes Absolute Auto 2.6 10^3/uL (1.2-3.8); Mean Corpuscular HGB Conc 36.2 g/dL (29.9-35.2); Mean Corpuscular Hemoglobin 31.7 pg (25.9-34.0); Mean Corpuscular Volume 87.5 fL (80.0-94.0); Platelet Count 203 10^3/uL (150-450); Red Blood Count 5.68 10^6/uL (4.70-6.10); White Blood Count 8.3 10^3/uL (4.0-11.0)
[2025-08-24 20:39] LABS: Anion Gap 10.4; Blood Urea Nitrogen 20.0 mg/dL (7.0-18.0); Calcium 9.2 mg/dL (8.5-10.1); Carbon Dioxide 27.0 mmol/L (21.0-32.0); Chloride 100 mmol/L (98-107); Estimated GFR (African America >60 (>=60 mL/min/1.73m^2); Estimated GFR (Non-African Ame >60 (>=60 mL/min/1.73m^2); Glucose 97 mg/dL (74-106); Potassium 3.4 mmol/L (3.5-5.1); Sodium 134 mmol/L (136-145)
--- NOTE | 2025-08-24 20:42 | ED_ITS ---
HPI HPI - General Adult General Chief complaint: Weakness Stated complaint: REACTION FROM MEDICATION HE IS TAKING, MAYBE Time Seen by Provider: 08/24/25 19:23 Source: patient Mode of arrival: walk-in History of Present Illness HPI narrative: Patient is a 20-year-old male with a PMH of asthma that presents with complaints of headache since Wednesday, intermittent lightheaded/dizzy, and brain fog that started this week and worsened today. He has also been getting some tingling in his bilateral hands. He has had a toothache and started on Augmentin on Wednesday and is planning to get a root canal and tooth pulled with the dentist when approved by insurance. He also has recently been on prednisone and still has about 7 doses left for a rash on his back. He does note that he started to get a lot of pressure behind his right eye as well. Related Data Home Medications ?Medication ?Instructions ?Recorded ?Confirmed amoxicillin 875 mg-potassium 1 tab PO Q12H 08/24/25 clavulanate 125 mg tablet prednisone 10 mg tablet 20 mg PO DAILY 08/24/2507/29 Allergies Allergy/AdvReac Type Severity Reaction Status Date / Time No Known Drug Allergies Allergy Verified 08/24/25 19:19 Review of Systems ROS Status of ROS 10 or more systems reviewed and unremark able except as noted in history and below PFSH PFSH Social History Little interest or pleasure in doing things: not at all Feeling down, depressed, or hopeless: not at all Exam Narrative Exam Narrative: General: No distress, age-appropriate Skin: Warm, dry, no pallor. No rash. Head: Normocephalic, atraumatic. Neck: Supple, non-tender. Eye: Pupils are equal, round and EOMI. No scleral icterus. Ears, Nose, Mouth, and Throat: No nasal mucosal hypertrophy. Oral mucosa is moist, no posterior oropharynx erythema, uvula is mid-line Cardiovascular: Regular Rate and Rhythm without murmur, gallop or rub. Respiratory: No accessory muscle use or respiratory distress. Lungs are clear to auscultation, no wheezing, rales or rhonchi Chest Wall: no tenderness Back: No midline thoracic or lumbar vertebral tenderness. Musculoskeletal: Full ROM of all extremities, no calf or popliteal tenderness GI: Abdomen is soft, non-distended, non tender to palpation. No masses appreciated. No rebound, guarding, or rigidity noted. Neurological: A&O x4. No cranial nerve dysfunction observed. No truncal ataxia. Moves all extremities. Sensation intact. Psychiatric: Cooperative and interactive. Normal mood and affect. Constitutional Vital Signs, click to edit/add: Last Vital Signs Temp 97.7 F 08/24/25 19:19 Pulse 74 08/24/25 21:40 Resp 20 08/24/25 21:40 BP 150/70 H 08/24/25 21:42 Pulse Ox 97 08/24/25 21:42 O2 Del Method Room Air 08/24/25 20:05 Documenting provider has reviewed patient's vital signs: yes Course Vital Signs Vital signs: Vital Signs Temperature 97.7 F 08/24/25 19:19 Pulse Rate 98 H 08/24/25 19:19 Respiratory Rate 20 08/24/25 19:19 Blood Pressure 150/80 H 08/24/25 19:19 Pulse Oximetry 20 L 08/24/25 19:19 Oxygen Delivery Method Room Air 08/24/25 19:19 Temperature 97.7 F 08/24/25 19:19 Pulse Rate 74 08/24/25 21:40 Respiratory Rate 20 08/24/25 21:40 Blood Pressure 150/70 H 08/24/25 21:42 Pulse Oximetry 97 08/24/25 21:42 Oxygen Delivery Method Room Air 08/24/25 20:05 Medical Decision Making [facility] Narrative Medical decision making narrative: 20-year-old male with a history of asthma presents with headache, intermittent lightheadedness, brain fog, and bilateral hand tingling in the setting of a dental infection treated with Augmentin and ongoing prednisone therapy. He also reports pressure behind the right eye. Vital signs are stable. Exam reveals no focal neurologic deficits, no meningismus, and no signs of orbital or facial cellulitis. Laboratory evaluation shows normal CBC and BMP. CT brain without contrast is normal. Given the normal imaging and labs, absence of fever, and reassuring neurologic exam, there is no evidence of acute intracranial pathology or systemic infection. His symptoms are most likely related to medication effects (prednisone), dental or sinus discomfort, and tension-type headache. R esults discussed with patient and dnwbvb-ov-vut at bedside and he was counseled on hydration and analgesia, and provided return precautions. He is stable for discharge with outpatient follow-up with his dentist and primary care provider. Differential Diagnosis Differential Diagnosis: Dehydration, medication side effect, migraine Lab Data Lab results reviewed: Yes I reviewed the patient's lab results Labs: Lab Results 08/24/25 08/24/25 Range/Units 20:03 20:13 WBC 8.3 (4.0-11.0) 10^3/uL RBC 5.68 (4.70-6.10) 10^6/uL Hgb 18.0 (14.0-18.0) g/dL Hct 49.7 (42.0-54.0) % MCV 87.5 (80.0-94.0) fL MCH 31.7 (25.9-34.0) pg MCHC 36.2 H (29.9-35.2) g/dL RDW 11.6 (11.0-15.0) % Plt Count 203 (150-450) 10^3/uL MPV 9.5 (9.5-13.5) fL Neut % (Auto) 56.6 (43.0-75.0) % Lymph % (Auto) 31.8 (20.5-60.0) % Marshall % (Auto) 8.5 (1.7-12.0) % Eos % (Auto) 1.7 (0.9-7.0) % Baso % (Auto) 0.6 (0.2-2.0) % Neut # (Auto) 4.7 (1.4-6.5) 10^3/uL Lymph # (Auto) 2.6 (1.2-3.8) 10^3/uL Marshall # (Auto) 0.7 (0.3-0.8) 10^3/uL Eos # (Auto) 0.1 (0.0-0.7) 10^3/uL Baso # (Auto) 0.1 (0.0-0.1) 10^3/uL Abs Immat Gran (auto) 0.07 H (0.00-0.03) 10^3/uL Imm/Tot Granulo (auto) 0.8 H (0.0-0.5) % Sodium 134 L (136-145) mmol/L Potassium 3.4 L (3.5-5.1) mmol/L Chloride 100 (98-107) mmol/L Carbon Dioxide 27.0 (21.0-32.0) mmol/L Anion Gap 10.4 BUN 20.0 H (7.0-18.0) mg/dL Creatinine 0.92 (0.70-1.30) mg/dL Est GFR ( Amer) >60 (>=60 mL/min/1.73m^2) Est GFR (Non-Af Amer) >60 (>=60 mL/min/1.73m^2) BUN/Creatinine Ratio 21.7 Glucose 97 (74-106) mg/dL Calcium 9.2 (8.5-10.1) mg/dL POC Glucose 92 (74-106) mg/dL Imaging Data CT scan - head: Attestation: I have reviewed the pertinent imaging results. Radiologist's impression: ITS Impressions Head CT 08/24/25 19:54 IMPRESSION: NO ACUTE INTRACRANIAL ABNORMALITY. Impression dictated by: Juni Eric M.D. 08/24/2025 9:28 PM Dictation Location: [place] [address] Electronically authenticated by: [id number] Y Date: 08/24/2025 21:28 Discharge Plan Discharge Chief Complaint: Weakness Clinical Impression: Headache Patient Disposition: Home, Self-Care Time of Disposition Decision: 21:28 Condition: Good Mode of Transportation: Private Vehicle Prescriptions / Home Meds: No Action amoxicillin-pot clavulanate 875-125 mg tablet 1 tab PO Q12H Rx Instructions: started on 08/21, to take for 7 days. prednisone 10 mg tablet 20 mg PO DAILY Rx Instructions: Taper down Print Language: Citizen Of [place] Instructions: Acute Headache (ED) Referrals: IRASEMA BACA [Primary Care Provider, GUEST HISTORY CLERK] - 1 week Discharge Date/Time: 08/24/25 21:58
== END 2025-08-24 21:58 | disposition home or self-care (01) ==
PROVIDERS: Physician Assistant; Emergency Provider Student in an Organized Health Care Education/Training Program; PCP Nurse Practitioner
DX: R51.9 Headache, unspecified (principal); J45.909 Unspecified asthma, uncomplicated
CPT/HCPCS: 36415; 70450; 80048; 85025; 93005; 99285